=== PATIENT | female | born 1975 | race Two or more races ===

== ENCOUNTER 2024-10-31 23:06 | Inpatient (IN) | payer MEDICAID, SELFPAY ==
[2024-10-31 23:57] VITALS: BP 128/81; PULSE 100; RESP 18; TEMP 38.2; O2SAT 96; BMI 30.2
[2024-11-01] VITALS (7 sets, daily range): BP systolic 116–151; BP diastolic 75–86; PULSE 79–100; RESP 16–20; TEMP 36.2–37.3; O2SAT 96–100
--- NOTE | 2024-11-01 00:05 | EKG_ITS ---
[facility] Test Date: 2024-11-01 Pat Name: JIMMIE HOGAN Department: Room: - Gender: Female Rug [employer]her: : 1975 Requested By: Urban Barragan Order Number: [id number] Reading MD: Urban Barragan Measurements Intervals Keyes Rate: 99 P: 43 KS: 154 QRS: 35 QRSD: 74 T: 16 QT: 317 QTc: 408 Interpretive Statements SINUS RHYTHM LOW QRS VOLTAGE IN PRECORDIAL LEADS [QRS DEFLECTION < 1.0 mV IN CHEST LEADS] NONSPECIFIC T-WAVE ABNORMALITY Compared to ECG 10/29/2019 22:25:37 Low QRS voltage now present T-wave abnormality now present /store/S0/[id number].pdf
--- NOTE | 2024-11-01 00:05 | XR_ITS ---
Examination: PA lateral chest 2 views Technique: Upright PA lateral chest 2 views Exam date and time: November 01, 2024 at 0026 hrs. Indication: Chest pain today. Findings: Normal heart size 34 mm area of consolidation versus mass in the right midlung No pulmonary edema Impression: 34 mm area of consolidation versus mass in the right midlung, recommend follow-up chest imaging
--- NOTE | 2024-11-01 00:06 | EDRME_ITS ---
Rapid Medical Screening Exam [facility] Arrival date/time: 10/31/24 23:06 49F with history of HTN presents to ED with 2 days of R flank/upper back pain and fevers/chills. Patient denies cough and obvious hematuria/dysuria. Chief Complaint: Back Pain/Injury Vital signs: Vital Signs Temperature 100.8 F H 10/31/24 23:57 Pulse Rate 100 10/31/24 23:57 Respiratory Rate 18 10/31/24 23:57 Blood Pressure 128/81 10/31/24 23:57 Pulse Oximetry (%) 96 10/31/24 23:57 Oxygen Delivery Method Room Air 10/31/24 23:57
[2024-11-01 01:00] LABS: Lactate (Lactic Acid) 0.9 mMol/L (0.4-2.0)
[2024-11-01 01:09] LABS: Collection Type, Urine Clean Catch; RBC,Urine 0 /hpf (0-3); Squamous Epithelial Cell,Urine 0 /hpf (0-5); WBC,Urine 0 /hpf (0-5)
[2024-11-01 01:11] LABS: Basophils % (Auto) 0 % (0-2.5); Eosinophils # (Auto) 0.2 Thou/mm3 (0.0-0.5); Eosinophils % (Auto) 3 % (0-10); Hematocrit 38.6 % (36.0-46.0); Immature Granulocytes % (Auto) 0 % (0-0); Immature Granulocytes Auto 0.03 Thou/mm3 (0.00-0.00); Lymphocytes # (Auto) 2.3 Thou/mm3 (1.0-4.8); Lymphocytes % (Auto) 24 % (10-50); Mean Corpuscular HGB Conc 33.7 g/dl (31.0-37.0); Mean Corpuscular Volume 89 fL (80-100); Monocytes # (Auto) 0.9 Thou/mm3 (0.0-0.8); Monocytes % (Auto) 9 % (0-12); Neutrophils # (Auto) 6.1 Thou/mm3 (1.8-7.7); Neutrophils % (Auto) 64 % (37-80); Nucleated Red Blood Cell % 0 /100 WBC (0); Platelet Count 352 Thou/mm3 (140-440); RDW Standard Deviation 44.2 fL (36.4-46.3); Red Blood Count 4.33 Miln/mm3 (4.00-5.20); White Blood Count 9.6 Thou/mm3 (3.6-11.0)
[2024-11-01 01:12] LABS: Bilirubin,Urine Negative (Negative); Blood,Urine 3+ (Negative); Clarity,Urine Clear (Clear/Hazy); Color,Urine Lt Yellow (Lt Yel-Yel); Glucose, Urine Negative (Negative); Ketones,Urine Negative (Negative); Leukocyte Esterase,Urine 2+ (Negative); Nitrite,Urine Negative (Negative); PH,Urine 5.5 (5.0-7.0); Protein,Urine Negative (Neg - Trace); Specific Gravity,Urine 1.015 (1.001-1.035); Urobilinogen,Urine 0.2 mg/dL (0.0-1.0)
[2024-11-01 01:16] LABS: HCG Qualitative,Urine Negative
[2024-11-01 01:17] LABS: Culture Indicated,Urine Yes
[2024-11-01 01:22] LABS: Amphetamine/Methamp Scrn,U Negative (Negative); Barbiturate Screen,Urine Negative (Negative); Benzodiazepines Screen,Urine Negative (Negative); Benzoylecgonine Screen, Ur Negative (Negative); Fentanyl Screen,Urine Negative (Negative); Opiate Screen,Urine Negative (Negative); THC Screen,Urine Negative (Negative)
[2024-11-01 01:29] LABS: Alanine Aminotransferase 19 U/L (10-49); Albumin, Serum 4.7 gm/dL (3.5-5.0); Albumin/Globulin Ratio 1.3 (1.2-2.2); Alkaline Phosphatase 110 U/L (46-116); Anion Gap 7 (7-16); Aspartate Amino Transferase 21 U/L (0-34); BUN/Creatinine Ratio 14 Ratio (12-20); Bilirubin,Total 0.6 mg/dL (0.3-1.2); Blood Urea Nitrogen 13 mg/dL (9-23); Calcium 9.8 mg/dL (8.3-10.6); Calcium (Corrected) 9.8 mg/dL (8.5-10.1); Carbon Dioxide 26.2 mMol/L (20.0-31.0); Chloride 104 mMol/L (98-107); Creatinine (Component) 0.9 mg/dL (0.6-1.3); Estimated Creatinine Clearance 75.7 mL/min (>60); Globulin 3.5 gm/dL (2.3-3.5); Glucose 104 mg/dL (74-106); Osmolality,Calculated 273 (275-295); Potassium 3.3 mMol/L (3.4-5.1); Procalcitonin 0.07 ng/ml (0.0-0.49); Sodium 137 mMol/L (136-145); Total Protein 8.2 gm/dL (5.7-8.2); Troponin I < 0.002 ng/mL (0.0-0.045); eGFR > 60 See Note
--- NOTE | 2024-11-01 04:12 | EDNOTE_ITS ---
ED Back Injury Pain RME/HPI General Chief Complaint: Back Pain/Injury Stated Complaint: Right Flank Pain Time Seen by Provider: 11/01/24 04:11 Arrival date/time: 10/31/24 23:06 Limitations: no limitations RME / HPI RME / HPI Narrative: 10/31/24 23:06 49F with history of HTN presents to ED with 2 days of R flank/upper back pain and fevers/chills. Patient denies cough and obvious hematuria/dysuria. ---- Dr. Marks's Main ED Evaluation: 49yo female with a history of HTN presents to the ED for a chief complaint of left mid back pain x 1 day. Patient states the pain woke her up when she was sleeping. She states she feels like something's wrong with my lung . Sbe denies any chest pain, cough, fever, chills, BLE swelling or any other associated symptoms. No known allergies. Related Data Allergies Allergy/AdvReac Type Severity Reaction Status Date / Time No Known Allergies Allergy Verified 10/29/19 21:48 Review of Systems Review of Systems Systems Reviewed: All systems reviewed, normal except as documented Past Medical History Social History SMOKING STATUS: Never smoker ED Exam General Limitations: Present no limitations General appearance: Present alert and in no apparent distress Head Head exam: Present atraumatic Eye Eye exam: Present normal appearance, PERRL and EOMI ENT ENT exam: Present normal exam, normal oropharynx and mucous membranes moist Neck Neck exam: Present normal inspection, full ROM and trachea midline Chest Chest inspection: Present normal inspection and symmetric chest wall rise Respiratory Respiratory exam: Present normal lung sounds bilaterally Cardiovascular Cardiovascular exam: Present normal rhythm, tachycardia and normal heart sounds Abdominal Exam Abdominal exam: Present soft and normal bowel sounds Extremities Exam Extremities exam: Present normal inspection and full ROM Back Exam Back exam: Present full ROM and paraspinal tenderness (left) Neurological Exam Neurological exam: Present alert, oriented X3 and CN II-XII intact Psychiatric Psychiatric exam: Present normal affect and normal mood Skin Skin exam: Present warm, dry, intact and normal color Course Course Course Narrative: CXR is ordered for determining the etiology of fever. Quality Measures none Orders Category Date Time Status Bedside COVID-19 Antigen Test NOW Care 11/01/24 00:05 Completed Bedside Influenza A&B Antigen Test NOW Care 11/01/24 00:[address] Screening NOW Care 11/01/24 05:03 Active EKG (ED ONLY) *Do not use* NOW Care 11/01/24 00:[address] angio chest Stat Exams 11/01/24 05:03 Taken EKG (ED Only) Stat Exams 11/01/24 00:05 Draft XR chest 2V Stat Exams 11/01/24 00:05 Taken CBC Stat Lab 11/01/24 00:46 Completed Comprehensive Metabolic Panel Stat Lab 11/01/24 00:46 Completed Drug Screen,Urine Stat Lab 11/01/24 00:32 Completed HCG Qualitative,Urine Stat Lab 11/01/24 00:32 Completed Lactate (Lactic Acid) Stat Lab 11/01/24 00:46 Completed Procalcitonin Stat Lab 11/01/24 00:46 Completed Troponin I Stat Lab 11/01/24 00:46 Completed Urinalysis, C/S if Indicated Stat Lab 11/01/24 00:32 Completed Urine Culture Stat Lab 11/01/24 00:32 Received Ketorolac Inj [Toradol Inj] Med 11/01/24 05:38 Discontinued 15 mg IVP X1 ONE Potassium Chloride [K-Dur] Med 11/01/24 05:38 Discontinued 20 meq PO X1 ONE Vital Signs Vital signs: Vital Signs Temperature 100.8 F H 10/31/24 23:57 Pulse Rate 100 10/31/24 23:57 Respiratory Rate 18 10/31/24 23:57 Blood Pressure 128/81 10/31/24 23:57 Pulse Oximetry (%) 96 10/31/24 23:57 Oxygen Delivery Method Room Air 10/31/24 23:57 Pulse ox is 96% on room air, which is normal according to my interpretation. Back Pain / Injury MDM Narrative MDM Narrative:: Differential diagnosis includes pulmonary embolism, pneumonia, pleural effusion, musculoskeletal. Patient data External records reviewed:: [facility] previous records (Per chart review, patient has no relevant previous ED visits or admissions to this facility.) Clinical information provided by:: patient Social determinants that could affect healthcare access:: none Patient has the following chronic illnesses:: none How is presenting disease/condition affected by chronic disease/condition?: no chronic disease Evaluation data The following diagnostics were reviewed and interpreted by me:: lab results, radiology exam(s) and EKG tracing(s) Lab and/or radiology exams considered but not ordered:: none Interpretation Summary: CBC is normal, Potassium is slightly low at 3.3, Procalcitonin is normal, Lactic Acid is normal, troponin is normal, HCG is negative, UA shows 3+ blood and 2+ leukocyte esterase, UDS is negative, according to my interpretation. CXR is negative for CHF, cardiomegaly, infiltrates or pleural effusions, according to my interpretation. EKG done at 0011, NSR, rate of 99, poor R wave progression, nonspecific ST-T wave changes in lead III, no ST elevations or depressions, similar to previous EKG done in 2019, according to my interpretation. Medications / Prescriptions Medications or Prescriptions considered but not ordered:: none Medication administrations:: Medication Administration History Discontinued Medications Ketorolac Tromethamine (Ketorolac Inj 30 Mg/Ml Vial) 15 mg IVP X1 ONE Stop: 11/01/24 05:39 Last Admin: 11/01/24 05:45 Dose: 15 mg Documented By: EE Potassium Chloride (Potassium Chloride 20 Meq Tabcr) 20 meq PO X1 ONE Stop: 11/01/24 05:39 Last Admin: 11/01/24 05:45 Dose: 20 meq Documented By: EE see above, if any Consultations Consultation(s) initiated? (list below): No Diagnosis Differential diagnosis back pain/injury: other (PE, pneumonia, pleural effusion, atypical pneumonia, musculoskeletal pain) Most likely diagnosis given after review of the tests above:: see below Admission Indicated Admission indicated?: not indicated Admission Request Was there a request for admission?: No Disposition Plan Disposition Plan: other (specify) (Signed out to the next oncoming provider at 0600 pending CTA of the chest.) Discharge Plan Plan Patient condition on transfer: Stable Problem List Clinical Impression: Thoracic back pain Patient/Caregiver Discharge Instructions Print Language: Indonesian
--- NOTE | 2024-11-01 05:03 | XR_ITS ---
Examination: CTA chest with intravenous contrast 2-D reconstructions 3-D reconstructions, vascular Date and time of exam: November 01, 2024 0629 hrs. Indications: Onset chest pain shortness of breath hypoxia difficulty breathing today, acute onset left back pain today CTDI: vol (mGy) 16.65 DLP: (mGycm) 425 Technique: Multiple axial sections of the thorax have been obtained. 3 mm slice thickness, from below the hemidiaphragms to above the apices of the lungs. Mediastinal and lung density settings have been obtained. 2-D sagittal and coronal reconstructions. 3-D angiographic renderings, 3-D volume renderings, 3D post processing, vascular maximum intensity projections obtained. Contrast administered is 100 cc Isovue-370 intravenous. Low dose protocols were performed. One or more of the following dose reduction techniques were used; automated exposure control, adjustment of the mA and/or KV according to patient size, use of iterative reconstruction technique. Findings: AP dimension ascending thoracic aorta 35 mm Pulmonary artery segments are not enlarged No pulmonary artery emboli Right hilar mild lymphadenopathy Prominent pneumonia right base Mild thoracic spondylosis 18 mm liver cyst No gallstones Spleen is not enlarged No pancreatic mass No hydronephrosis Abdominal aorta normal size Impression: Dense consolidation which may be cavitary in the right lower lobe with right hilar lymphadenopathy, follow-up chest imaging strongly recommended Negative for pulmonary artery emboli
[2024-11-01] MEDS: POTASSIUM CHLORIDE 20 mEq TABCR PO (05:45)
[2024-11-01] MEDS: KETOROLAC INJ 30 MG/ML VIAL 15 MG IVP (05:45)
--- NOTE | 2024-11-01 07:30 | PD.EDADDENDU ---
Emergency Room Addendum Addendum Narrative: 0600: Care assumed from Dr. Limon, the previous shift emergency physician. Past medical, surgical, social and family history reviewed. Vitals and home medications reviewed. I will assume the care of the patient at this time, pending CT angio chest report. Please refer to the emergency department record for history and examination from initial visit.? Nursing notes reviewed by me. Vital signs reviewed by me. [facility] medical records reviewed by me. 1110: At this time reports pain mostly to the right mid-upper back. We reviewed all the results, analysis, and treatment plans. Patient reports in the last 6 months she has had on/off night sweats which she attributed to menopause . Yesterday states she had chills. Denies fevers, cough, chest pain, shortness of breath, abdominal pain, n/v, change in appetite, or weight loss. Denies recent travel or known exposure to TB. 1120: I spoke with resident Dr. Canseco working with Dr. Coon. Discussed patients PMHx, HPI, ED course, exam findings, labs, and radiology results. Will come evaluate the patient in the ED. RADIOLOGY Ordering Physician: Marquita Limon MD Date of Service: 11/01/24 Procedure(s): CT angio chest Accession Number(s): [id number] cc: Femi Nichols MD; Marquita Limon MD~ Examination: CTA chest with intravenous contrast 2-D reconstructions 3-D reconstructions, vascular Date and time of exam: November 01, 2024 0629 hrs. Indications: Onset chest pain shortness of breath hypoxia difficulty breathing today, acute onset left back pain today CTDI: vol (mGy) 16.65 DLP: (mGycm) 425 Technique: Multiple axial sections of the thorax have been obtained. 3 mm slice thickness, from below the hemidiaphragms to above the apices of the lungs. Mediastinal and lung density settings have been obtained. 2-D sagittal and coronal reconstructions. 3-D angiographic renderings, 3-D volume renderings, 3D post processing, vascular maximum intensity projections obtained. Contrast administered is 100 cc Isovue-370 intravenous. Low dose protocols were performed. One or more of the following dose reduction techniques were used; automated exposure control, adjustment of the mA and/or KV according to patient size, use of iterative reconstruction technique. Findings: AP dimension ascending thoracic aorta 35 mm Pulmonary artery segments are not enlarged No pulmonary artery emboli Right hilar mild lymphadenopathy Prominent pneumonia right base Mild thoracic spondylosis 18 mm liver cyst No gallstones Spleen is not enlarged No pancreatic mass No hydronephrosis Abdominal aorta normal size Impression: Dense consolidation which may be cavitary in the right lower lobe with right hilar lymphadenopathy, follow-up chest imaging strongly recommended Negative for pulmonary artery emboli Dictated By:Femi Nichols MD Signed By:<Electronically signed by Femi Nichols MD in OV>11/01/24 0722
--- NOTE | 2024-11-01 11:09 | PD.EDRME ---
Rapid Medical Screening Exam [facility] Arrival date/time: 10/31/24 23:06 10/31/24 23:06 49F with history of HTN presents to ED with 2 days of R flank/upper back pain and fevers/chills. Patient denies cough and obvious hematuria/dysuria. ---- Dr. Marks'fiona Main ED Evaluation: 49yo female with a history of HTN presents to the ED for a chief complaint of left mid back pain x 1 day. Patient states the pain woke her up when she was sleeping. She states she feels like something's wrong with my lung . Sbe denies any chest pain, cough, fever, chills, BLE swelling or any other associated symptoms. No known allergies. Chief Complaint: Back Pain/Injury Time Seen by Provider: 11/01/24 04:11 Vital signs: Vital Signs Temperature 100.8 F H 10/31/24 23:57 Pulse Rate 100 10/31/24 23:57 Respiratory Rate 18 10/31/24 23:57 Blood Pressure 128/81 10/31/24 23:57 Pulse Oximetry (%) 96 10/31/24 23:57 Oxygen Delivery Method Room Air 10/31/24 23:57 RME Narrative: 10/31/24 23:06 49F with history of HTN presents to ED with 2 days of R flank/upper back pain and fevers/chills. Patient denies cough and obvious hematuria/dysuria. ---- Dr. Villalta Main ED Evaluation: 49yo female with a history of HTN presents to the ED for a chief complaint of left mid back pain x 1 day. Patient states the pain woke her up when she was sleeping. She states she feels like something's wrong with my lung . Sbe denies any chest pain, cough, fever, chills, BLE swelling or any other associated symptoms. No known allergies.
--- NOTE | 2024-11-01 13:43 | PD.RESHP ---
Documentation for date of: 11/01/24 [facility] History of Present Illness Chief complaint: Pain on the back of right chest History of present illness: A 49-year-old female with past medical history of hypertension on lisinopril presented to the hospital with chief complaints of pain on the back of right side of chest since 1 day. Patient was apparently normal 1 day ago, developed sudden onset of pain in the right back. Pain is continuous without any aggravating or relieving factors. Denies fever, shortness of breath, cough, trauma, night sweats, weight loss, abdominal pain. Denies similar complaints in the past. Denied recent travel. ED Course: -Initial vitals were blood pressure 128/81 mmHg, pulse rate 100/min, respiratory rate 18/min, temperature 100.8 ?F -Labs significant for WBC 9.6, Hb 13, platelets 352, sodium 137, potassium 3.3, BUN 13, creatinine 0.9, lactate 0.9, negative Pro-Joon and liver function test is within normal limits. Urine analysis showed 3+ blood without any WBC. Tested negative for urine toxicology -CTA chest showed dense consolidation in the right lower lobe with suspected cavitated lesion with hilar lymphadenopathy. -In the ED, patient was given potassium supplementation and a dose of ketorolac -Patient was admitted for pneumonia Past medical history: Hypertension on lisinopril Past surgical history: History of lump in the breast almost 30 years ago s/p biopsy, no malignancy noted on the biopsy per patient Social history: Denies smoking, alcohol or other illicit drug abuse. Allergies: NKA Review of Systems Review of Systems Narrative Review of Systems: Constitutional: No Weight Change, No Fever, No Chills, No Night Sweats, No Fatigue, No Malaise ENT/Mouth: No Hearing Changes, No Ear Pain, No Nasal Congestion, No Sinus Pain, No Hoarseness, No sore throat, No Rhinorrhea, No Swallowing Difficulty Eyes: No Eye Pain, No Swelling, No Redness, No Foreign Body, No Discharge, No Vision Changes Cardiovascular: No Chest Pain, No SOB, No PND, No Dyspnea on Exertion, No Orthopnea, No Edema, No Palpitations Respiratory: No Cough, No Sputum, No Wheezing, No Dyspnea Gastrointestinal: No Nausea, No Vomiting, No Diarrhea, No Constipation, No Pain, No Heartburn, No Anorexia, No Dysphagia, No Hematochezia, No Melena, No Flatulence, No Jaundice Genitourinary: No Dysuria, No Urinary Frequency, No Hematuria, No Urinary Incontinence, No Urgency, No Flank Pain, No Urinary Flow Changes, No Hesitancy Musculoskeletal: No Arthralgias, No Myalgias, No Joint Swelling, No Joint Stiffness, No Back Pain, No Neck Pain, No Injury History Skin: No Skin Lesions, No Pruritis Neuro: No Weakness, No Numbness, No Paresthesias, No Loss of Consciousness, No Syncope, No Dizziness, No Headache, No Coordination Changes, No Recent Falls Exam Vital Signs Temp Pulse Resp BP Pulse Ox O2 Del Method 98.5 F 79 16 131/80 H 97 Room Air 11/01/24 11:40 11/01/24 11:40 11/01/24 11:40 11/01/24 11:40 11/01/24 11:40 11/01/24 11:40 Narrative Exam General: Awake and in no acute distress. HEENT: Normocephalic, atraumatic, mucous membranes moist. Heart: Regular rate and rhythm, no murmurs. Lungs: Right posterior basal crepitations are heard. Rest of the examination is unremarkable Abdomen: Soft, nondistended, nontender, positive bowel sounds. ?No guarding or rebound tenderness. Neurologic: Alert and oriented x3, no gross neurological deficit, and patient able to move all 4 extremities. Extremities: No edema. Skin: No rash or ecchymoses. Results: Labs 11/03/24 05:30 11/03/24 05:30 Labs: Short CBC 11/01/24 Range/Units 00:46 WBC 9.6 (3.6-11.0) Thou/mm3 Hgb 13.0 (12.0-16.0) g/dL Hct 38.6 (36.0-46.0) % Plt Count 352 (140-440) Thou/mm3 BMP 11/01/24 00:46 Sodium 137 Potassium 3.3 L Chloride 104 Carbon Dioxide 26.2 BUN 13 Creatinine 0.9 Glucose 104 Calcium 9.8 Cardiac Enzymes 11/01/24 Range/Units 00:46 Troponin I < 0.002 (0.0-0.045) ng/mL Liver Function 11/01/24 Range/Units 00:46 Total Bilirubin 0.6 (0.3-1.2) mg/dL AST 21 (0-34) U/L ALT 19 (10-49) U/L Alkaline Phosphatase 110 (46-116) U/L Albumin 4.7 (3.5-5.0) gm/dL Urine 11/01/24 Range/Units 00:32 Urine Color Lt Yellow (Lt Yel-Yel) Urine Clarity Clear (Clear/Hazy) Urine pH 5.5 (5.0-7.0) Ur Specific [place] 1.015 (1.001-1.035) Urine Protein Negative (Neg - Trace) Urine Glucose (UA) Negative (Negative) Quality Measures Quality Measures none Medications Home Medications and Allergies Home Medications ?Medication ?Instructions ?Recorded ?Confirmed ?Type lisinopril 10 1 tab PO QDAY 11/01/24 11/01/24 History mg-hydrochlorothiazide 12.5 mg tablet Allergies Allergy/AdvReac Type Severity Reaction Status Date / Time No Known Allergies Allergy Verified 10/29/19 21:48 Visit Medications Acetaminophen (Acetaminophen 325 Mg Tablet) 650 mg PO Q6H PRN PRN Reason: Fever >101.5 Stop: 12/01/24 13:28 Ceftriaxone Sodium/Dextrose (Rocephin/D5w 1gm Iv Premix) 50 mls @ 100 mls/hr IV Q12HR GUILLE Stop: 11/08/24 13:32 Magnesium Hydroxide (Milk Of Magnesia Susp 30 Ml Udc) 30 ml PO QDAY PRN; Protocol PRN Reason: CONSTIPATION Stop: 12/01/24 13:28 Ondansetron HCl (Ondansetron Inj 2 Mg/Ml Inj 2 Ml) 4 mg IV Q6H PRN; Protocol PRN Reason: NAUSEA OR VOMITING Stop: 12/01/24 13:28 Discontinued Medications Ketorolac Tromethamine (Ketorolac Inj 30 Mg/Ml Vial) 15 mg IVP X1 ONE Stop: 11/01/24 05:39 Last Admin: 11/01/24 05:45 Dose: 15 mg Potassium Chloride (Potassium Chloride 20 Meq Tabcr) 20 meq PO X1 ONE Stop: 11/01/24 05:39 Last Admin: 11/01/24 05:45 Dose: 20 meq Sodium Chloride (Sodium Chloride Rt 10% 15 Ml Nebu) 5 ml INH X1 ONE Stop: 11/01/24 13:30 Assessment & Plan Plan A 49-year-old female with past medical history of hypertension on lisinopril presented to the hospital with chief complaints of pain on the back of right side of chest since 1 day and diagnosed to have pneumonia # Pneumonia # Cavitary lesion in the right lung Ddx : TB versus cocci versus sarcoidosis versus malignancy -Patient came to the hospital with the complaints of pain on the back of the right chest -Denies fever, shortness of breath, cough, weight loss, night sweats -Denies any travel history. 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 -In the ED noted to have a temperature of 100.8 ?F -CBC and CMP is within normal limits. -CTA showed right lower lobe consolidation with cavitary lesion. Plan -Cocci IgM and IgG is ordered -Sputum for AFB, QuantiFERON, tuberculin test is ordered. -Sputum for culture and Gram stain is ordered -Started on ceftriaxone and doxycycline [11/01- -ordered Mucinex inhalation and chest physiotherapy # History of hypertension -Blood pressure at the time of admission is 138/81 mmHg -Patient stated that she is using lisinopril 20 Mg at home Plan -Will resume the medications based on her blood pressures Hospital Maintenance: Dispo: MedSurg DVT ppx: SCD GI ppx: Not required Diet: Low-sodium IV lines: Peripheral Code status: Full code Patient plan of care was discussed with the attending physician, Dr. Coon and senior resident Dr. Ajith Hall, PGY1 Attending Provider Attestation/Addendum I reviewed labs, imaging, EKG, home medications and prior available records. Face to face evaluation was performed by me. I have personally examined the patient and discussed assessment and plan with the IM team. I reviewed the resident note and agree with the plan with exceptions as below. 49-year-old female with history of hypertension who presented with a chief complaint of subjective fevers, sweating, and cough. She was found to have possible right lower lobe pneumonia and cavitary lesion of lung. Right lower lobe pneumonia: Started the patient on ceftriaxone/cali doxycycline. Cavitary lesion of lung: Sent TB workup and cocci IgM. Consulted ID to determine whether we need to do AFB x 3. Ordered QuantiFERON.
--- NOTE | 2024-11-01 14:06 | PC.CC ---
Patient is a 49 year-old female who presents to the hospital for Pneumonia. Rayne WINCHESTER made [id number] contact with patient. ASW introduced self, role, and reason for visit. Patient appeared alert and oriented to self, location, and situation. Patient was pleasant and engaged in initial assessment. Patient confirmed information on the demographics and reports she lives at home with her , Isac Souza . Prior to being admitted to the hospital the patient was able to ambulate independently and complete own ADLs. Patient does not use any DME or Oxygen. [facility]. Patient uses [facility] in [place] for prescription medications. Patient reports he next of kin is her , Isac Souza. Upon discharge patient plans to return back home. director emergency services to remain available for any discharge needs.
[2024-11-01 14:32] LABS: Cocci Serology, IgM Negative (Negative)
[2024-11-01] MEDS: cefTRIAXone/D5w 1gm IV premix 50 ML IV ×2 (16:06→20:28)
[2024-11-01] MEDS: DOXYCYCLINE 100 MG TABLET PO (20:28)
[2024-11-01] MEDS: TUBERCULIN PPD INJ 5 UNIT/0.1 ML DOSE ID (20:28)
[2024-11-02] VITALS: BP 135/78; PULSE 80; RESP 17; TEMP 36.2; O2SAT 98
[2024-11-02 04:00] VITALS: BP 132/78; PULSE 84; RESP 17; TEMP 36; O2SAT 96
--- NOTE | 2024-11-02 04:58 | PC.RT ---
PT unable to produce sputum with induction, MD Holland ok to put AFb on hold. states he will discuss with dayteam plan of care.
[2024-11-02 06:02] LABS: Quantiferon-TB* See Sep Rpt
[2024-11-02 06:11] LABS: Basophils % (Auto) 0 % (0-2.5); Eosinophils # (Auto) 0.3 Thou/mm3 (0.0-0.5); Eosinophils % (Auto) 4 % (0-10); Hematocrit 36.7 % (36.0-46.0); Hemoglobin 12.5 g/dL (12.0-16.0); Immature Granulocytes % (Auto) 0 % (0-0); Immature Granulocytes Auto 0.02 Thou/mm3 (0.00-0.00); Lymphocytes # (Auto) 1.8 Thou/mm3 (1.0-4.8); Lymphocytes % (Auto) 23 % (10-50); Mean Corpuscular HGB Conc 34.1 g/dl (31.0-37.0); Mean Corpuscular Hemoglobin 29.8 pg (25.0-35.0); Mean Corpuscular Volume 87 fL (80-100); Monocytes # (Auto) 0.7 Thou/mm3 (0.0-0.8); Monocytes % (Auto) 9 % (0-12); Neutrophils # (Auto) 5.2 Thou/mm3 (1.8-7.7); Neutrophils % (Auto) 64 % (37-80); Nucleated Red Blood Cell % 0 /100 WBC (0); Platelet Count 275 Thou/mm3 (140-440); RDW Standard Deviation 42.5 fL (36.4-46.3)
[2024-11-02 06:43] LABS: Anion Gap 7 (7-16); BUN/Creatinine Ratio 13 Ratio (12-20); Blood Urea Nitrogen 12 mg/dL (9-23); Calcium 9.4 mg/dL (8.3-10.6); Carbon Dioxide 27.7 mMol/L (20.0-31.0); Chloride 103 mMol/L (98-107); Creatinine (Component) 0.9 mg/dL (0.6-1.3); Glucose 97 mg/dL (74-106); Osmolality,Calculated 275 (275-295); Potassium 3.7 mMol/L (3.4-5.1); Sodium 138 mMol/L (136-145); eGFR > 60 See Note
[2024-11-02 08:00] VITALS: BP 138/70; PULSE 82; RESP 18; TEMP 36.9; O2SAT 97
[2024-11-02] MEDS: DOXYCYCLINE 100 MG TABLET PO ×2 (08:42→20:56)
[2024-11-02] MEDS: cefTRIAXone/D5w 1gm IV premix 50 ML IV ×2 (08:42→20:56)
[2024-11-02 12:00] VITALS: BP 127/82; PULSE 85; RESP 17; TEMP 36.8; O2SAT 97
[2024-11-02 13:47] LABS: Cocci Serology, IgG Negative (Negative)
[2024-11-02 16:00] VITALS: BP 126/79; PULSE 80; RESP 18; TEMP 36.7; O2SAT 97
--- NOTE | 2024-11-02 16:13 | ESPR_ITS ---
<Statement entered by Haritha Canseco MD - 11/03/24 07:46> Patient was seen and examined by me personally. I agree with most of the assessment and plan as discussed with the graphics intern physician, and my attending, Dr. Coon. Unable to induce sputum for AFB. PPD and Quantiferon pending. Cocci IgM negative, however may need to repeat. Will consult ID for further recs. Continue Abx for now. Haritha Canseco MD, PGY-3 Documentation for date of: 11/02/24 Subjective Subjective Interval history: Patient was seen and examined bedside. No acute overnight events. Stated that she does not have any complaints. Labs are unremarkable. Physical examination remains unchanged. As patient is not having sputum despite induction, sputum AFB is still pending. Patient is still in isolation. ID consult was done Exam Vital Signs Temp Pulse Resp BP Pulse Ox O2 Del Method 98.3 F 85 17 127/82 97 Room Air 11/02/24 12:00 11/02/24 12:00 11/02/24 12:00 11/02/24 12:00 11/02/24 12:00 11/02/24 12:00 Narrative Exam General: Awake and in no acute distress. HEENT: Normocephalic, atraumatic, mucous membranes moist. Heart: Regular rate and rhythm, no murmurs. Lungs: Clear to auscultation with no wheezing. crackles heard at lung base Abdomen: Soft, nondistended, nontender, positive bowel sounds. ?No guarding or rebound tenderness. Neurologic: Alert and oriented x3, no gross neurological deficit, and patient able to move all 4 extremities. Extremities: No edema. Skin: No rash or ecchymoses. Objective Labs 11/03/24 05:30 11/03/24 05:30 Labs: Laboratory Results - last 24 hr 11/01/24 11/02/24 11:50 05:05 WBC 8.0 RBC 4.20 Hgb 12.5 Hct 36.7 MCV 87 MCH 29.8 MCHC 34.1 RDW Std Deviation 42.5 Plt Count 275 D Neut % (Auto) 64 Lymph % (Auto) 23 [place] % (Auto) 9 Eos % (Auto) 4 Baso % (Auto) 0 Neut # (Auto) 5.2 Lymph # (Auto) 1.8 [place] # (Auto) 0.7 Eos # (Auto) 0.3 Baso # (Auto) 0.0 Immature Gran # (Auto) 0.02 H Absolute Nucleated RBC 0.00 Immature Gran % 0 Nucleated RBC % 0 Sodium 138 Potassium 3.7 Chloride 103 Carbon Dioxide 27.7 Anion Gap 7 BUN 12 Creatinine 0.9 Estim Creat Clear Calc 75.0 eGFR > 60 BUN/Creatinine Ratio 13 Glucose 97 Calculated Osmolality 275 Calcium 9.4 Coccidioides IgG Ab Negative Quality Measures Quality Measures none Assessment & Plan Assessment Current Active Medications: Generic Name Dose Route Start Last Admin Trade Name Freq PRN Reason Stop Dose Admin Acetaminophen 650 mg 11/01/24 13:29 Acetaminophen 325 Mg Tablet PO 12/01/24 13:28 Q6H PRN Fever >101.5 Doxycycline Hyclate 100 mg 11/01/24 21:00 11/02/24 08:42 Doxycycline 100 Mg Tablet PO 11/08/24 20:59 100 mg BID GUILLE Administration Ceftriaxone Sodium/Dextrose 50 mls @ 100 mls/hr 11/01/24 13:33 11/02/24 08:42 Rocephin/D5w 1gm Iv Premix IV 11/08/24 13:32 100 mls/hr Q12HR GUILLE Administration Magnesium Hydroxide 30 ml 11/01/24 13:29 Milk Of Magnesia Susp 30 Ml Udc PO 12/01/24 13:28 QDAY PRN CONSTIPATION Protocol Ondansetron HCl 4 mg 11/01/24 13:29 Ondansetron Inj 2 Mg/Ml Inj 2 Ml IV 12/01/24 13:28 Q6H PRN NAUSEA OR VOMITING Protocol Sodium Chloride 5 ml 11/01/24 20:40 Sodium Chloride Rt 10% 15 Ml Nebu INH 12/01/24 22:59 Q8HRRT PRN SPUTUM INDUCTION Plan A 49-year-old female with past medical history of hypertension on lisinopril presented to the hospital with chief complaints of pain on the back of right side of chest since 1 day and diagnosed to have pneumonia # Pneumonia # Cavitary lesion in the right lung Ddx : TB versus cocci versus sarcoidosis versus malignancy -Patient came to the hospital with the complaints of pain on the back of the right chest -Denies fever, shortness of breath, cough, weight loss, night sweats -Denies any travel history. 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 -In the ED noted to have a temperature of 100.8 ?F -CBC and CMP is within normal limits. -CTA showed right lower lobe consolidation with cavitary lesion. Plan -Cocci IgM and IgG is ordered - came back negative -Sputum for AFB, QuantiFERON, tuberculin test is ordered - sputum for AFB is still pending as patient is not able to produce despite induction. -Sputum for culture and Gram stain is ordered -Started on ceftriaxone and doxycycline [11/01- # History of hypertension -Blood pressure at the time of admission is 138/81 mmHg -Patient stated that she is using lisinopril 20 Mg at home Plan -Will resume the medications based on her blood pressures #H/O lump in the breast, benign 20 yrs ago, asymptomatic as of now Hospital Maintenance: Dispo: MedSurg DVT ppx: SCD GI ppx: Not required Diet: Low-sodium IV lines: Peripheral Code status: Full code Patient plan of care was discussed with the attending physician, Dr. Coon and senior resident Dr. Ajith Hall, PGY1 Attending Provider Attestation/Addendum I reviewed labs, imaging, EKG, home medications and prior available records. Face to face evaluation was performed by me. I have personally examined the patient and discussed assessment and plan with the IM team. I reviewed the resident note and agree with the plan with exceptions as below. 49-year-old female with history of hypertension who presented with a chief complaint of subjective fevers, sweating, and cough. She was found to have possible right lower lobe pneumonia and cavitary lesion of lung. Right lower lobe pneumonia: Started the patient on ceftriaxone/cali doxycycline. Cavitary lesion of lung: Sent TB workup and cocci IgM. Consulted ID to determine whether we need to do AFB x 3. Ordered QuantiFERON.
[2024-11-02 20:00] VITALS: BP 134/82; PULSE 81; RESP 17; TEMP 36.4; O2SAT 98
[2024-11-03] VITALS: BP 135/78; PULSE 86; RESP 16; TEMP 36.9; O2SAT 95
[2024-11-03 04:00] VITALS: BP 136/91; PULSE 76; RESP 15; TEMP 36.3; O2SAT 97
[2024-11-03 05:54] LABS: Basophils % (Auto) 0 % (0-2.5); Eosinophils # (Auto) 0.3 Thou/mm3 (0.0-0.5); Eosinophils % (Auto) 4 % (0-10); Hematocrit 33.8 % (36.0-46.0); Hemoglobin 11.4 g/dL (12.0-16.0); Immature Granulocytes % (Auto) 0 % (0-0); Immature Granulocytes Auto 0.02 Thou/mm3 (0.00-0.00); Lymphocytes # (Auto) 2.1 Thou/mm3 (1.0-4.8); Lymphocytes % (Auto) 29 % (10-50); Mean Corpuscular HGB Conc 33.7 g/dl (31.0-37.0); Mean Corpuscular Hemoglobin 29.8 pg (25.0-35.0); Mean Corpuscular Volume 88 fL (80-100); Monocytes # (Auto) 0.5 Thou/mm3 (0.0-0.8); Monocytes % (Auto) 7 % (0-12); Neutrophils # (Auto) 4.4 Thou/mm3 (1.8-7.7); Neutrophils % (Auto) 59 % (37-80); Nucleated Red Blood Cell % 0 /100 WBC (0); Platelet Count 263 Thou/mm3 (140-440); RDW Standard Deviation 42.3 fL (36.4-46.3); Red Blood Count 3.83 Miln/mm3 (4.00-5.20); White Blood Count 7.3 Thou/mm3 (3.6-11.0)
[2024-11-03 06:30] LABS: Anion Gap 8 (7-16); BUN/Creatinine Ratio 15 Ratio (12-20); Blood Urea Nitrogen 12 mg/dL (9-23); Calcium 8.9 mg/dL (8.3-10.6); Carbon Dioxide 25.3 mMol/L (20.0-31.0); Chloride 105 mMol/L (98-107); Creatinine (Component) 0.8 mg/dL (0.6-1.3); Estimated Creatinine Clearance 84.3 mL/min (>60); Glucose 98 mg/dL (74-106); Osmolality,Calculated 275 (275-295); Potassium 3.8 mMol/L (3.4-5.1); Sodium 138 mMol/L (136-145); eGFR > 60 See Note
[2024-11-03 07:45] VITALS: BP 128/79; PULSE 70; RESP 18; TEMP 36.4; O2SAT 94
[2024-11-03] MEDS: cefTRIAXone/D5w 1gm IV premix 50 ML IV ×2 (10:10→20:47)
[2024-11-03] MEDS: DOXYCYCLINE 100 MG TABLET PO ×2 (10:10→20:48)
--- NOTE | 2024-11-03 11:25 | ESPR_ITS ---
Documentation for date of: 11/03/24 Subjective Subjective Interval history: Patient was seen and examined bedside. Denies any other complaints. Physical examination remains unchanged. Labs were unremarkable. Still pending QuantiFERON and sputum AFB. Consulted Dr Hussein and will appreciate his ruminations. Exam Vital Signs Temp Pulse Resp BP Pulse Ox O2 Del Method 97.5 F 70 18 128/79 94 L Room Air 11/03/24 07:45 11/03/24 07:45 11/03/24 07:45 11/03/24 07:45 11/03/24 07:45 11/03/24 07:45 Narrative Exam General: Awake and in no acute distress. HEENT: Normocephalic, atraumatic, mucous membranes moist. Heart: Regular rate and rhythm, no murmurs. Lungs: Clear to auscultation with no wheezing. Crackles heard at the base of right lung. Abdomen: Soft, nondistended, nontender, positive bowel sounds. ?No guarding or rebound tenderness. Neurologic: Alert and oriented x3, no gross neurological deficit, and patient able to move all 4 extremities. Extremities: No edema. Skin: No rash or ecchymoses. Objective Labs 11/04/24 04:15 11/04/24 04:15 Labs: Laboratory Results - last 24 hr 11/01/24 11/03/24 11:50 05:30 WBC 7.3 RBC 3.83 L Hgb 11.4 L Hct 33.8 L MCV 88 MCH 29.8 MCHC 33.7 RDW Std Deviation 42.3 Plt Count 263 Neut % (Auto) 59 Lymph % (Auto) 29 [place] % (Auto) 7 Eos % (Auto) 4 Baso % (Auto) 0 Neut # (Auto) 4.4 Lymph # (Auto) 2.1 [place] # (Auto) 0.5 Eos # (Auto) 0.3 Baso # (Auto) 0.0 Immature Gran # (Auto) 0.02 H Absolute Nucleated RBC 0.00 Immature Gran % 0 Nucleated RBC % 0 Sodium 138 Potassium 3.8 Chloride 105 Carbon Dioxide 25.3 Anion Gap 8 BUN 12 Creatinine 0.8 Estim Creat Clear Calc 84.3 eGFR > 60 BUN/Creatinine Ratio 15 Glucose 98 Calculated Osmolality 275 Calcium 8.9 Coccidioides IgG Ab Negative Quality Measures Quality Measures none Assessment & Plan Assessment Current Active Medications: Generic Name Dose Route Start Last Admin Trade Name Stanleyq PRN Reason Stop Dose Admin Acetaminophen 650 mg 11/01/24 13:29 Acetaminophen 325 Mg Tablet PO 12/01/24 13:28 Q6H PRN Fever >101.5 Doxycycline Hyclate 100 mg 11/01/24 21:00 11/03/24 10:10 Doxycycline 100 Mg Tablet PO 11/08/24 20:59 100 mg BID GUILLE Administration Ceftriaxone Sodium/Dextrose 50 mls @ 100 mls/hr 11/01/24 13:33 11/03/24 10:10 Rocephin/D5w 1gm Iv Premix IV 11/08/24 13:32 100 mls/hr Q12HR GUILLE Administration Magnesium Hydroxide 30 ml 11/01/24 13:29 Milk Of Magnesia Susp 30 Ml Udc PO 12/01/24 13:28 QDAY PRN CONSTIPATION Protocol Ondansetron HCl 4 mg 11/01/24 13:29 Ondansetron Inj 2 Mg/Ml Inj 2 Ml IV 12/01/24 13:28 Q6H PRN NAUSEA OR VOMITING Protocol Sodium Chloride 5 ml 11/01/24 20:40 Sodium Chloride Rt 10% 15 Ml Nebu INH 12/01/24 22:59 Q8HRRT PRN SPUTUM INDUCTION Plan A 49-year-old female with past medical history of hypertension on lisinopril presented to the hospital with chief complaints of pain on the back of right side of chest since 1 day and diagnosed to have pneumonia # Pneumonia # Cavitary lesion in the right lung Ddx : cocci versus sarcoidosis versus malignancy versus low suspicion of TB -Patient came to the hospital with the complaints of pain on the back of the right chest -Denies fever, shortness of breath, cough, weight loss, night sweats -Denies any travel history. 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 -In the ED noted to have a temperature of 100.8 ?F -CBC and CMP is within normal limits. -CTA showed right lower lobe consolidation with cavitary lesion. Plan -Cocci IgM and IgG is ordered - came back negative -Sputum for AFB, QuantiFERON, tuberculin test is ordered - sputum for AFB is still pending as patient is not able to produce despite induction. -Sputum for culture and Gram stain is ordered -is still pending as patient is not able to produce despite induction. -Started on ceftriaxone and doxycycline [11/01- -Dr Hussein was consulted and will appreciate recommendations. # History of hypertension -Blood pressure at the time of admission is 138/81 mmHg -Patient stated that she is using lisinopril 20 Mg at home Plan -Will resume the medications based on her blood pressures #H/O lump in the breast, benign 20 yrs ago, asymptomatic as of now Hospital Maintenance: Dispo: MedSurg DVT ppx: SCD GI ppx: Not required Diet: Low-sodium IV lines: Peripheral Code status: Full code Patient plan of care was discussed with the attending physician, Dr. Coon and senior resident Dr. Ricki Hall, PGY1 L Ms. Trujillo is a pleasant Nepali-speaking 49-year-old female who was admitted for recurrent right chest wall pain. She was found to have a right lower lobe pneumonia, questionable for a cavitary lesion. Patient did endorse subjective fevers and cold sweats intermittently over the last few weeks. QuantiFERON and cocci workup ordered. Pending sample collection for AFB to rule out TB at this time. Infectious disease specialist Dr. Hussein is consulted for further recommendations. Patient examined and case discussed with the team including attending physician. Note reviewed, I agree with the care plan as documented. - Fausto Robison MD, PGY 2 Attending Provider Attestation/Addendum I reviewed labs, imaging, EKG, home medications and prior available records. Face to face evaluation was performed by me. I have personally examined the patient and discussed assessment and plan with the IM team. I reviewed the resident note and agree with the plan with exceptions as below. 49-year-old female with history of hypertension who presented with a chief complaint of subjective fevers, sweating, and cough. She was found to have possible right lower lobe pneumonia and cavitary lesion of lung. Right lower lobe pneumonia: Started the patient on ceftriaxone/ doxycycline. Cavitary lesion of lung: Sent TB workup and cocci IgM. Consulted ID to determine whether we need to do AFB x 3. Ordered QuantiFERON which is pending. Pending ID recommendations.
[2024-11-03 11:54] VITALS: BP 121/83; PULSE 75; RESP 18; TEMP 36.4; O2SAT 97
[2024-11-03 15:39] VITALS: BP 134/83; PULSE 81; RESP 18; TEMP 36.2; O2SAT 97
[2024-11-03 20:00] VITALS: BP 136/82; PULSE 79; RESP 17; TEMP 36.3; O2SAT 98
[2024-11-04] VITALS: BP 147/75; PULSE 74; RESP 17; TEMP 36.7; O2SAT 97
[2024-11-04 04:00] VITALS: BP 124/77; PULSE 74; RESP 17; TEMP 36.4; O2SAT 97
[2024-11-04 05:48] LABS: Basophils % (Auto) 1 % (0-2.5); Eosinophils # (Auto) 0.3 Thou/mm3 (0.0-0.5); Eosinophils % (Auto) 5 % (0-10); Hemoglobin 11.4 g/dL (12.0-16.0); Immature Granulocytes % (Auto) 0 % (0-0); Immature Granulocytes Auto 0.01 Thou/mm3 (0.00-0.00); Lymphocytes # (Auto) 2.4 Thou/mm3 (1.0-4.8); Lymphocytes % (Auto) 35 % (10-50); Mean Corpuscular HGB Conc 33.5 g/dl (31.0-37.0); Mean Corpuscular Hemoglobin 29.6 pg (25.0-35.0); Mean Corpuscular Volume 88 fL (80-100); Monocytes # (Auto) 0.4 Thou/mm3 (0.0-0.8); Monocytes % (Auto) 7 % (0-12); Neutrophils # (Auto) 3.5 Thou/mm3 (1.8-7.7); Neutrophils % (Auto) 53 % (37-80); Nucleated Red Blood Cell % 0 /100 WBC (0); Platelet Count 300 Thou/mm3 (140-440); RDW Standard Deviation 41.9 fL (36.4-46.3); Red Blood Count 3.85 Miln/mm3 (4.00-5.20); White Blood Count 6.7 Thou/mm3 (3.6-11.0)
[2024-11-04 06:24] LABS: Anion Gap 10 (7-16); BUN/Creatinine Ratio 16 Ratio (12-20); Blood Urea Nitrogen 11 mg/dL (9-23); Carbon Dioxide 25.2 mMol/L (20.0-31.0); Chloride 105 mMol/L (98-107); Creatinine (Component) 0.7 mg/dL (0.6-1.3); Estimated Creatinine Clearance 96.4 mL/min (>60); Glucose 94 mg/dL (74-106); Osmolality,Calculated 278 (275-295); Potassium 3.5 mMol/L (3.4-5.1); Sodium 140 mMol/L (136-145); eGFR > 60 See Note
[2024-11-04 08:00] VITALS: BP 131/79; PULSE 70; RESP 16; TEMP 36.6; O2SAT 96
[2024-11-04] MEDS: cefTRIAXone/D5w 1gm IV premix 50 ML IV ×2 (09:58→19:59)
[2024-11-04] MEDS: DOXYCYCLINE 100 MG TABLET PO ×2 (09:58→19:59)
[2024-11-04 12:00] VITALS: BP 137/77; PULSE 69; RESP 16; TEMP 36.6; O2SAT 99
[2024-11-04 13:25] LABS: Collection Type, Urine Clean Catch
[2024-11-04 13:40] VITALS: BMI 29.5
[2024-11-04 13:45] LABS: Bilirubin,Urine Negative (Negative); Blood,Urine 2+ (Negative); Clarity,Urine Clear (Clear/Hazy); Color,Urine Lt-Yellow (Lt Yel-Yel); Glucose, Urine Negative (Negative); Ketones,Urine Negative (Negative); Leukocyte Esterase,Urine Negative (Negative); Nitrite,Urine Negative (Negative); Protein,Urine Negative (Neg - Trace); RBC,Urine 15 /hpf (0-3); Specific Gravity,Urine 1.013 (1.001-1.035); Squamous Epithelial Cell,Urine 1 /hpf (0-5); Urobilinogen,Urine Negative mg/dL (0.0-1.0); WBC,Urine 1 /hpf (0-5)
--- NOTE | 2024-11-04 15:47 | ESPR_ITS ---
Documentation for date of: 11/04/24 Subjective Subjective Interval history: Patient was seen and examined bedside. Denies any other complaints. Still pending Dr. Hussein's recommendations. Still patient is not able to produce sputum and QuantiFERON test is still pending Exam Vital Signs Temp Pulse Resp BP Pulse Ox O2 Del Method 97.8 F 69 16 137/77 H 99 Room Air 11/04/24 12:00 11/04/24 12:00 11/04/24 12:00 11/04/24 12:00 11/04/24 12:00 11/04/24 12:00 Narrative Exam General: Awake and in no acute distress. HEENT: Normocephalic, atraumatic, mucous membranes moist. Heart: Regular rate and rhythm, no murmurs. Lungs: Clear to auscultation with no wheezing. Fine inspiratory crackles are heard on the right base of the lung. Abdomen: Soft, nondistended, nontender, positive bowel sounds. ?No guarding or rebound tenderness. Neurologic: Alert and oriented x3, no gross neurological deficit, and patient able to move all 4 extremities. Extremities: No edema. Skin: No rash or ecchymoses. Objective Labs 11/05/24 05:30 11/05/24 05:30 Labs: Laboratory Results - last 24 hr 11/04/24 11/04/24 04:15 12:13 WBC 6.7 RBC 3.85 L Hgb 11.4 L Hct 34.0 L MCV 88 MCH 29.6 MCHC 33.5 RDW Std Deviation 41.9 Plt Count 300 D Neut % (Auto) 53 Lymph % (Auto) 35 [place] % (Auto) 7 Eos % (Auto) 5 Baso % (Auto) 1 Neut # (Auto) 3.5 Lymph # (Auto) 2.4 [place] # (Auto) 0.4 Eos # (Auto) 0.3 Baso # (Auto) 0.0 Immature Gran # (Auto) 0.01 H Absolute Nucleated RBC 0.00 Immature Gran % 0 Nucleated RBC % 0 Sodium 140 Potassium 3.5 Chloride 105 Carbon Dioxide 25.2 Anion Gap 10 BUN 11 Creatinine 0.7 Estim Creat Clear Calc 96.4 eGFR > 60 BUN/Creatinine Ratio 16 Glucose 94 Calculated Osmolality 278 Calcium 9.0 Ur Collection Type Clean Catch Urine Color Lt-Yellow Urine Clarity Clear Urine pH 6.0 Ur Specific [place] 1.013 Urine Protein Negative Urine Glucose (UA) Negative Urine Ketones Negative Urine Blood 2+ A Urine Nitrite Negative Urine Bilirubin Negative Urine Urobilinogen (Auto) Negative Ur Leukocyte Esterase Negative Urine RBC 15 H Urine WBC 1 Ur Squamous Epith Cells 1 Urine Bacteria None Quality Measures Quality Measures none Assessment & Plan Assessment Current Active Medications: Generic Name Dose Route Start Last Admin Trade Name Freq PRN Reason Stop Dose Admin Acetaminophen 650 mg 11/04/24 11:41 Acetaminophen 325 Mg Tablet PO 12/01/24 13:28 Q6H PRN Fever >100 Doxycycline Hyclate 100 mg 11/01/24 21:00 11/04/24 09:58 Doxycycline 100 Mg Tablet PO 11/08/24 20:59 100 mg BID GUILLE Administration Ceftriaxone Sodium/Dextrose 50 mls @ 100 mls/hr 11/01/24 13:33 11/04/24 09:58 Rocephin/D5w 1gm Iv Premix IV 11/08/24 13:32 100 mls/hr Q12HR GUILLE Administration Magnesium Hydroxide 30 ml 11/01/24 13:29 Milk Of Magnesia Susp 30 Ml Udc PO 12/01/24 13:28 QDAY PRN CONSTIPATION Protocol Ondansetron HCl 4 mg 11/01/24 13:29 Ondansetron Inj 2 Mg/Ml Inj 2 Ml IV 12/01/24 13:28 Q6H PRN NAUSEA OR VOMITING Protocol Sodium Chloride 5 ml 11/01/24 20:40 Sodium Chloride Rt 10% 15 Ml Nebu INH 12/01/24 22:59 Q8HRRT PRN SPUTUM INDUCTION Plan A 49-year-old female with past medical history of hypertension on lisinopril presented to the hospital with chief complaints of pain on the back of right side of chest since 1 day and diagnosed to have pneumonia # Pneumonia # Cavitary lesion in the right lung Ddx : cocci versus sarcoidosis versus malignancy versus low suspicion of TB -Patient came to the hospital with the complaints of pain on the back of the right chest -Denies fever, shortness of breath, cough, weight loss, night sweats -Denies any travel history. 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 -In the ED noted to have a temperature of 100.8 ?F -CBC and CMP is within normal limits. -CTA showed right lower lobe consolidation with cavitary lesion. -tuberculin test is is negative -Cocci IgM and IgG is ordered - came back negative Plan -Sputum for AFB, QuantiFERON, ordered - sputum for AFB is still pending as patient is not able to produce despite induction. -Sputum for culture and Gram stain is ordered -is still pending as patient is not able to produce despite induction. -Started on ceftriaxone and doxycycline [11/01- -Dr Hussein was consulted and will appreciate recommendations. # History of hypertension -Blood pressure at the time of admission is 138/81 mmHg -Patient stated that she is using lisinopril 20 Mg at home Plan -Will resume the medications based on her blood pressures #H/O lump in the breast, benign 20 yrs ago, asymptomatic as of now Hospital Maintenance: Dispo: MedSurg DVT ppx: SCD GI ppx: Not required Diet: Low-sodium IV lines: Peripheral Code status: Full code Patient plan of care was discussed with the attending physician, Dr. Shaggy Hall, PGY1 Attending Provider Attestation/Addendum I reviewed labs, imaging, EKG, home medications and prior available records. Face to face evaluation was performed by me. I have personally examined the patient and discussed assessment and plan with the IM team. I reviewed the resident note and agree with the plan with exceptions as below. 49-year-old female with history of hypertension who presented with a chief complaint of subjective fevers, sweating, and cough. She was found to have possible right lower lobe pneumonia and cavitary lesion of lung. Right lower lobe pneumonia: Started the patient on ceftriaxone/ doxycycline. Cavitary lesion of lung: Sent TB workup and cocci IgM. Consulted ID to determine whether we need to do AFB x 3. Ordered QuantiFERON which is pending. Pending ID recommendations.
[2024-11-04 16:00] VITALS: BP 140/88; PULSE 76; RESP 17; TEMP 36.2; O2SAT 97
[2024-11-04 20:00] VITALS: BP 143/84; PULSE 79; RESP 17; TEMP 36.3; O2SAT 96
[2024-11-05] VITALS (7 sets, daily range): BP systolic 122–152; BP diastolic 70–84; PULSE 69–83; RESP 17–18; TEMP 36.4–36.9; O2SAT 94–98
[2024-11-05 05:44] LABS: Basophils % (Auto) 1 % (0-2.5); Eosinophils # (Auto) 0.3 Thou/mm3 (0.0-0.5); Eosinophils % (Auto) 5 % (0-10); Hematocrit 34.6 % (36.0-46.0); Hemoglobin 11.6 g/dL (12.0-16.0); Immature Granulocytes % (Auto) 0 % (0-0); Immature Granulocytes Auto 0.02 Thou/mm3 (0.00-0.00); Lymphocytes # (Auto) 2.4 Thou/mm3 (1.0-4.8); Lymphocytes % (Auto) 33 % (10-50); Mean Corpuscular HGB Conc 33.5 g/dl (31.0-37.0); Mean Corpuscular Hemoglobin 29.7 pg (25.0-35.0); Mean Corpuscular Volume 89 fL (80-100); Monocytes # (Auto) 0.4 Thou/mm3 (0.0-0.8); Monocytes % (Auto) 6 % (0-12); Neutrophils # (Auto) 3.9 Thou/mm3 (1.8-7.7); Neutrophils % (Auto) 55 % (37-80); Nucleated Red Blood Cell % 0 /100 WBC (0); Platelet Count 328 Thou/mm3 (140-440); RDW Standard Deviation 41.5 fL (36.4-46.3); White Blood Count 7.1 Thou/mm3 (3.6-11.0)
[2024-11-05 06:08] LABS: Anion Gap 9 (7-16); BUN/Creatinine Ratio 15 Ratio (12-20); Blood Urea Nitrogen 12 mg/dL (9-23); Calcium 9.2 mg/dL (8.3-10.6); Carbon Dioxide 24.1 mMol/L (20.0-31.0); Chloride 105 mMol/L (98-107); Creatinine (Component) 0.8 mg/dL (0.6-1.3); Estimated Creatinine Clearance 84.3 mL/min (>60); Glucose 93 mg/dL (74-106); Osmolality,Calculated 275 (275-295); Potassium 3.5 mMol/L (3.4-5.1); Sodium 138 mMol/L (136-145); eGFR > 60 See Note
--- NOTE | 2024-11-05 10:30 | XR_ITS ---
Examination: CT chest with intravenous contrast 2-D sagittal and coronal reconstructions Exam date and time: November 05, 2024 1339 hrs. Indications: Chest pain shortness of breath beginning 3 days ago CTDI:vol (mGy) 11.8 DLP: (mGycm) 351 Technique: Multiple axial sections of the thorax have been obtained. Sections have been obtained, 3 mm slice thickness. Mediastinal and lung density settings have been obtained. Intravenous contrast administered, 60 cc Isovue-370. 2-D sagittal, coronal images obtained. Low dose protocols were performed. One or more of the following dose reduction techniques were used; automated exposure control, adjustment of the mA and/or KV according to patient size, use of iterative reconstruction technique. Findings: No thoracic aortic aneurysmal dilatation Pulmonary artery segments are not enlarged Pulmonary artery opacification is poor, no gross pulmonary artery emboli Mild right hilar lymphadenopathy Pneumonia right base No pulmonary edema Liver cyst Contracted gallbladder Spleen is not enlarged No pancreatic or adrenal mass Impression: Significant right base pneumonia
[2024-11-05] MEDS: Lisinopril 2.5 MG TABLET 5 MG PO (12:03)
[2024-11-05] MEDS: DOXYCYCLINE 100 MG TABLET PO (12:04)
--- NOTE | 2024-11-05 12:21 | ESPR_ITS ---
Documentation for date of: 11/05/24 Subjective Subjective Interval history: Patient was seen and examined bedside. She is at baseline, denies any cough or B symptoms. Patient is unable to produce sputum, hence AFB samples have not been consulted. ID consulted, pending Dr. Hussein's recommendations. QuantiFERON results still pending. Will wait for Dr Hussein's recommendations regarding subacute action, or if pulmonary intervention may be needed to get bronchial washing Exam Vital Signs Temp Pulse Resp BP Pulse Ox O2 Del Method 97.7 F 75 17 123/74 96 Room Air 11/05/24 12:00 11/05/24 12:03 11/05/24 12:00 11/05/24 12:03 11/05/24 12:00 11/05/24 12:00 Narrative Exam Constitutional Alert, oriented x3 and comfortable HEENT Vision grossly intact. Patent nares. Trachea midline. Respiratory Chest normal on inspection and clear to auscultation bilaterally. Cardiovascular S1 and S2 audible, RRR. No murmurs or carotid bruit. No gross JVD. Abdominal Soft and non tender to palpation in all quadrants. BS + Genitourinary No bladder tenderness, no flank pain. Normal to palpation. Musculoskeletal Extremities tone within normal limits. No LE edema. Neurological CN II - XII grossly intact. Extremity motor and sensation grossly intact. Skin Warm, dry and intact. No apparent lesions. Psychiatric Patient has a good affect, is cooperative. Objective Labs 11/05/24 05:30 11/05/24 05:30 Labs: Laboratory Results - last 24 hr 11/04/24 11/05/24 12:13 05:30 WBC 7.1 RBC 3.90 L Hgb 11.6 L Hct 34.6 L MCV 89 MCH 29.7 MCHC 33.5 RDW Std Deviation 41.5 Plt Count 328 Neut % (Auto) 55 Lymph % (Auto) 33 [place] % (Auto) 6 Eos % (Auto) 5 Baso % (Auto) 1 Neut # (Auto) 3.9 Lymph # (Auto) 2.4 [place] # (Auto) 0.4 Eos # (Auto) 0.3 Baso # (Auto) 0.0 Immature Gran # (Auto) 0.02 H Absolute Nucleated RBC 0.00 Immature Gran % 0 Nucleated RBC % 0 Sodium 138 Potassium 3.5 Chloride 105 Carbon Dioxide 24.1 Anion Gap 9 BUN 12 Creatinine 0.8 Estim Creat Clear Calc 84.3 eGFR > 60 BUN/Creatinine Ratio 15 Glucose 93 Calculated Osmolality 275 Calcium 9.2 Ur Collection Type Clean Catch Urine Color Lt-Yellow Urine Clarity Clear Urine pH 6.0 Ur Specific [place] 1.013 Urine Protein Negative Urine Glucose (UA) Negative Urine Ketones Negative Urine Blood 2+ A Urine Nitrite Negative Urine Bilirubin Negative Urine Urobilinogen (Auto) Negative Ur Leukocyte Esterase Negative Urine RBC 15 H Urine WBC 1 Ur Squamous Epith Cells 1 Urine Bacteria None Quality Measures Quality Measures none Assessment & Plan Assessment Current Active Medications: Generic Name Dose Route Start Last Admin Trade Name Freq PRN Reason Stop Dose Admin Acetaminophen 650 mg 11/04/24 11:41 Acetaminophen 325 Mg Tablet PO 12/01/24 13:28 Q6H PRN Fever >100 Doxycycline Hyclate 100 mg 11/01/24 21:00 11/05/24 12:04 Doxycycline 100 Mg Tablet PO 11/08/24 20:59 100 mg BID GUILLE Administration Lisinopril 5 mg 11/05/24 09:00 11/05/24 12:03 Lisinopril 2.5 Mg Tablet PO 12/05/24 08:59 5 mg QDAY GUILLE Administration Magnesium Hydroxide 30 ml 11/01/24 13:29 Milk Of Magnesia Susp 30 Ml Udc PO 12/01/24 13:28 QDAY PRN CONSTIPATION Protocol Ondansetron HCl 4 mg 11/01/24 13:29 Ondansetron Inj 2 Mg/Ml Inj 2 Ml IV 12/01/24 13:28 Q6H PRN NAUSEA OR VOMITING Protocol Sodium Chloride 5 ml 11/01/24 20:40 Sodium Chloride Rt 10% 15 Ml Nebu INH 12/01/24 22:59 Q8HRRT PRN SPUTUM INDUCTION Plan A 49-year-old female with past medical history of hypertension on lisinopril presented to the hospital with chief complaints of pain on the back of right side of chest since 1 day and diagnosed to have pneumonia 1. Lower lobe cavitary lesion , TB rule out 2. History night sweats, no weight loss 3. H/O lump in the breast 4. Possible right lower lobe pneumonia Ddx : cocci versus sarcoidosis versus malignancy versus low suspicion of TB -Patient came to the hospital with the complaints of pain on the back of the right chest -Denies fever, shortness of breath, cough, weight loss, night sweats -Denies any travel history. 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 -History of breast lump, noted to be benign 20 yrs ago, asymptomatic as of now -In the ED noted to have a temperature of 100.8 ?F -CBC and CMP is within normal limits. -CTA showed right lower lobe consolidation with cavitary lesion. -PPD tuberculin test : negative -Cocci IgM and IgG : negative Plan -AFB : pending as patient is not able to produce despite induction. -QuantiFERON results : pending -Unable to obtain sputum for culture for the same reason -Will de-escalate from ceftriaxone+doxycycline [11/01-11/05] -> amoxicillin 500 mg 3 times daily [11/05 - -Consulted Dr Hussein ID to determine whether we need to do AFB x 3. -Unable to obtain sputum samples, will consider pulmonology consult to get bronchial washings 5. Primary hypertension -Blood pressure at the time of admission is 138/81 mmHg -Patient stated that she is using lisinopril 20 Mg at home Plan -Started home lisinopril, at reduced dose of 5 mg daily -BP trending 120s/70s Hospital Maintenance: Dispo: MedSurg, pending ID recommendations DVT ppx: SCDs GI ppx: Not required Diet: Low-sodium diet IV lines: Peripheral Code status: Full code Plan of care discussed with attending Dr Coon , Fausto Robison MD, PGY 2 Attending Provider Attestation/Addendum I reviewed labs, imaging, EKG, home medications and prior available records. Face to face evaluation was performed by me. I have personally examined the patient and discussed assessment and plan with the IM team. I reviewed the resident note and agree with the plan with exceptions as below. 49-year-old female with history of hypertension who presented with a chief complaint of subjective fevers, sweating, and cough. She was found to have possible right lower lobe pneumonia and cavitary lesion of lung. Right lower lobe pneumonia: Started the patient on ceftriaxone/ doxycycline. Cavitary lesion of lung: Sent TB workup and cocci IgM. Consulted ID to determine whether we need to do AFB x 3. Ordered QuantiFERON which is pending. TB skin test is negative. Ordered repeat CT chest with contrast to check for interval changes. Patient is low risk TB and his clinical picture is most likely consistent with lobular pneumonia. Pending ID recommendations.
[2024-11-05] MEDS: AMOXICILLIN 250 MG CAPSULE 500 MG PO (21:33)
[2024-11-06] VITALS (7 sets, daily range): BP systolic 112–146; BP diastolic 63–84; PULSE 67–82; RESP 15–18; TEMP 36.2–36.9; O2SAT 95–98
[2024-11-06] MEDS: AMOXICILLIN 250 MG CAPSULE 500 MG PO (05:32)
[2024-11-06] MEDS: Lisinopril 2.5 MG TABLET 5 MG PO (09:58)
[2024-11-06] MEDS: AMOXICILLIN 250 MG CAPSULE 1000 MG PO (14:21)
[2024-11-06 14:50] LABS: Cocci Serology, IgM Positive (Negative)
[2024-11-06 14:51] LABS: Cocid Sro, CF/ID (UCD) NO CHG* See Sep Rpt
--- NOTE | 2024-11-06 15:57 | ESPR_ITS ---
Documentation for date of: 11/06/24 Subjective Subjective Interval history: Patient was seen and examined bedside. No complaints, per patient. Still waiting for Dr. Hussein's recommendations. Repeat sample sent this morning tested positive for cocci IgM and started on fluconazole. Exam Vital Signs Temp Pulse Resp BP Pulse Ox O2 Del Method 98.4 F 82 16 146/84 H 98 Room Air 11/06/24 15:35 11/06/24 15:35 11/06/24 15:35 11/06/24 15:35 11/06/24 15:35 11/06/24 15:35 Narrative Exam General: Awake. Lying comfortably on the bed. HEENT: Normocephalic, atraumatic, mucous membranes moist. Heart: Regular rate and rhythm, no murmurs. Lungs: Clear to auscultation with no wheezing or crackles. Abdomen: Soft, nondistended, nontender, positive bowel sounds. ?No guarding or rebound tenderness. Neurologic: Alert and oriented x3, no gross neurological deficit, and patient able to move all 4 extremities. Extremities: No edema. Skin: No rash or ecchymoses. Objective Labs 11/07/24 05:18 11/05/24 05:30 Labs: Laboratory Results - last 24 hr 11/06/24 11:19 Coccidioides IgM Ab Positive A Quality Measures Quality Measures none Assessment & Plan Assessment Current Active Medications: Generic Name Dose Route Start Last Admin Trade Name Freq PRN Reason Stop Dose Admin Acetaminophen 650 mg 11/04/24 11:41 Acetaminophen 325 Mg Tablet PO 12/01/24 13:28 Q6H PRN Fever >100 Fluconazole 400 mg 11/06/24 15:15 Fluconazole 100 Mg Tablet PO 11/13/24 15:14 QDAY GUILLE Lisinopril 5 mg 11/05/24 09:00 11/06/24 09:58 Lisinopril 2.5 Mg Tablet PO 12/05/24 08:59 5 mg QDAY GUILLE Administration Magnesium Hydroxide 30 ml 11/01/24 13:29 Milk Of Magnesia Susp 30 Ml Udc PO 12/01/24 13:28 QDAY PRN CONSTIPATION Protocol Ondansetron HCl 4 mg 11/01/24 13:29 Ondansetron Inj 2 Mg/Ml Inj 2 Ml IV 12/01/24 13:28 Q6H PRN NAUSEA OR VOMITING Protocol Sodium Chloride 5 ml 11/01/24 20:40 Sodium Chloride Rt 10% 15 Ml Nebu INH 12/01/24 22:59 Q8HRRT PRN SPUTUM INDUCTION Plan A 49-year-old female with past medical history of hypertension on lisinopril presented to the hospital with chief complaints of pain on the back of right side of chest since 1 day and diagnosed to have pneumonia # Pneumonia # Cavitary lesion in the right lung # IgM cocci positive Ddx : cocci versus sarcoidosis versus low suspicion of TB -Patient came to the hospital with the complaints of pain on the back of the right chest -Denies fever, shortness of breath, cough, weight loss, night sweats -Denies any travel history. 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 -In the ED noted to have a temperature of 100.8 ?F -CBC and CMP is within normal limits. -CTA showed right lower lobe consolidation with cavitary lesion. -tuberculin test is is negative -Cocci IgM and IgG is ordered - came back negative at the time of admission -Repeat cocci sent on 11/06/2024 tested positive for IgM Plan -Sputum for AFB, QuantiFERON, ordered - sputum for AFB is still pending as patient is not able to produce despite induction. -Sputum for culture and Gram stain is ordered -is still pending as patient is not able to produce despite induction. -Stopped antibiotics and started on fluconazole 400 Mg p.o. daily in view of cocci positive IgM -Dr Hussein was consulted and will appreciate recommendations. # History of hypertension -Blood pressure at the time of admission is 138/81 mmHg -Patient stated that she is using lisinopril 20 Mg at home Plan -Will resume the medications based on her blood pressures #H/O lump in the breast, benign 20 yrs ago, asymptomatic as of now Hospital Maintenance: Dispo: MedSurg DVT ppx: SCD GI ppx: Not required Diet: Low-sodium IV lines: Peripheral Code status: Full code Patient plan of care was discussed with the attending physician, Dr. Coon and senior resident Dr.Verma Benji Hall, PGY1 Ms. Trujillo is a pleasant Korean-speaking 49-year-old female who was admitted for recurrent right chest wall pain. She was found to have a right lower lobe pneumonia, questionable for a cavitary lesion. Patient did endorse subjective fevers and cold sweats intermittently over the last few weeks. QuantiFERON pending. Pending sample collection for AFB to rule out TB at this time. Infectious disease specialist Dr. Hussein is consulted for further recommendations, he will see patient tomorrow. Cocci IgM positive on 11/06, patient started on fluconazole 400mg qD. Patient examined and case discussed with the team including attending physician. Note reviewed, I agree with the care plan as documented. - Fausto Robison MD, PGY 2 Attending Provider Attestation/Addendum I reviewed labs, imaging, EKG, home medications and prior available records. Face to face evaluation was performed by me. I have personally examined the patient and discussed assessment and plan with the IM team. I reviewed the resident note and agree with the plan with exceptions as below. 49-year-old female with history of hypertension who presented with a chief complaint of subjective fevers, sweating, and cough. She was found to have possible right lower lobe pneumonia and cavitary lesion of lung. Right lower lobe pneumonia: Started the patient on ceftriaxone/ doxycycline. Cavitary lesion of lung: Sent TB workup and cocci IgM. Repeat cocci IgM is positive. Started fluconazole. Repeat CT scan of the chest showed right lower lobe pneumonia. Consulted ID to determine whether we need to do AFB x 3. Ordered QuantiFERON which is pending. Pending ID recommendations.
[2024-11-06] MEDS: FLUCONAZOLE 100 MG TABLET 400 MG PO (17:52)
[2024-11-07] VITALS (7 sets, daily range): BP systolic 121–142; BP diastolic 69–86; PULSE 71–80; RESP 17–18; TEMP 36.3–36.6; O2SAT 96–98
[2024-11-07 06:24] LABS: Basophils # (Auto) 0.1 Thou/mm3 (0.0-0.2); Basophils % (Auto) 1 % (0-2.5); Eosinophils # (Auto) 0.3 Thou/mm3 (0.0-0.5); Eosinophils % (Auto) 5 % (0-10); Hematocrit 36.9 % (36.0-46.0); Hemoglobin 12.3 g/dL (12.0-16.0); Immature Granulocytes % (Auto) 0 % (0-0); Immature Granulocytes Auto 0.02 Thou/mm3 (0.00-0.00); Lymphocytes # (Auto) 2.6 Thou/mm3 (1.0-4.8); Lymphocytes % (Auto) 37 % (10-50); Mean Corpuscular HGB Conc 33.3 g/dl (31.0-37.0); Mean Corpuscular Volume 90 fL (80-100); Monocytes # (Auto) 0.5 Thou/mm3 (0.0-0.8); Monocytes % (Auto) 7 % (0-12); Neutrophils # (Auto) 3.6 Thou/mm3 (1.8-7.7); Neutrophils % (Auto) 50 % (37-80); Nucleated Red Blood Cell % 0 /100 WBC (0); Platelet Count 342 Thou/mm3 (140-440); RDW Standard Deviation 43.6 fL (36.4-46.3); White Blood Count 7.1 Thou/mm3 (3.6-11.0)
[2024-11-07] MEDS: FLUCONAZOLE 100 MG TABLET 400 MG PO (08:41)
[2024-11-07] MEDS: Lisinopril 2.5 MG TABLET 5 MG PO (08:41)
--- NOTE | 2024-11-07 17:07 | ESPR_ITS ---
<Statement entered by Haritha Canseco MD - 11/08/24 07:56> Patient was seen and examined by me personally. I agree with most of the assessment and plan as discussed with the finance intern physician, and my attending, Dr. Coon. Cocci positive, on fluconazole. Less likely TB at this time. PPD neg, QFT pending. Will discuss with ID if AFB sputum can be cancelled and patient discharged home. Haritha Canseco MD, PGY-3 Documentation for date of: 11/07/24 Subjective Subjective Interval history: Patient was seen and examined bedside. Denies any symptoms. Explained about her current condition and explained that we are waiting for Dr. Hussein's recommendations. QuantiFERON is still pending. Exam Vital Signs Temp Pulse Resp BP Pulse Ox O2 Del Method 97.5 F 74 18 130/78 96 Room Air 11/07/24 16:00 11/07/24 16:00 11/07/24 16:00 11/07/24 16:00 11/07/24 16:00 11/07/24 16:00 Narrative Exam General: Awake. Lying comfortably on the bed. Moderately built and nourished HEENT: Normocephalic, atraumatic, mucous membranes moist. Heart: Regular rate and rhythm, no murmurs. Lungs: Clear to auscultation with no wheezing. Fine inspiratory crackles heard on right posterior base of the lung. Abdomen: Soft, nondistended, nontender, positive bowel sounds. ?No guarding or rebound tenderness. Neurologic: Alert and oriented x3, no gross neurological deficit, and patient able to move all 4 extremities. Extremities: No edema. Skin: No rash or ecchymoses. Objective Labs 11/07/24 05:18 11/05/24 05:30 Labs: Laboratory Results - last 24 hr 11/07/24 05:18 WBC 7.1 RBC 4.10 Hgb 12.3 Hct 36.9 MCV 90 MCH 30.0 MCHC 33.3 RDW Std Deviation 43.6 Plt Count 342 Neut % (Auto) 50 Lymph % (Auto) 37 [place] % (Auto) 7 Eos % (Auto) 5 Baso % (Auto) 1 Neut # (Auto) 3.6 Lymph # (Auto) 2.6 [place] # (Auto) 0.5 Eos # (Auto) 0.3 Baso # (Auto) 0.1 Immature Gran # (Auto) 0.02 H Absolute Nucleated RBC 0.00 Immature Gran % 0 Nucleated RBC % 0 Quality Measures Quality Measures none Assessment & Plan Assessment Current Active Medications: Generic Name Dose Route Start Last Admin Trade Name Freq PRN Reason Stop Dose Admin Acetaminophen 650 mg 11/04/24 11:41 Acetaminophen 325 Mg Tablet PO 12/01/24 13:28 Q6H PRN Fever >100 Fluconazole 400 mg 11/06/24 15:15 11/07/24 08:41 Fluconazole 100 Mg Tablet PO 11/13/24 15:14 400 mg QDAY GUILLE Administration Lisinopril 5 mg 11/05/24 09:00 11/07/24 08:41 Lisinopril 2.5 Mg Tablet PO 12/05/24 08:59 5 mg QDAY GUILLE Administration Magnesium Hydroxide 30 ml 11/01/24 13:29 Milk Of Magnesia Susp 30 Ml Udc PO 12/01/24 13:28 QDAY PRN CONSTIPATION Protocol Ondansetron HCl 4 mg 11/01/24 13:29 Ondansetron Inj 2 Mg/Ml Inj 2 Ml IV 12/01/24 13:28 Q6H PRN NAUSEA OR VOMITING Protocol Sodium Chloride 5 ml 11/01/24 20:40 Sodium Chloride Rt 10% 15 Ml Nebu INH 12/01/24 22:59 Q8HRRT PRN SPUTUM INDUCTION Plan A 49-year-old female with past medical history of hypertension on lisinopril presented to the hospital with chief complaints of pain on the back of right side of chest since 1 day and diagnosed to have pneumonia # Pneumonia # Cavitary lesion in the right lung # IgM cocci positive Ddx : cocci versus sarcoidosis versus low suspicion of TB -Patient came to the hospital with the complaints of pain on the back of the right chest -Denies fever, shortness of breath, cough, weight loss, night sweats -Denies any travel history. 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 -In the ED noted to have a temperature of 100.8 ?F -CBC and CMP is within normal limits. -CTA showed right lower lobe consolidation with cavitary lesion. -tuberculin test is is negative -Cocci IgM and IgG is ordered - came back negative at the time of admission -Repeat cocci sent on 11/06/2024 tested positive for IgM Plan -Sputum for AFB, QuantiFERON, ordered - sputum for AFB is still pending as patient is not able to produce despite induction. -Sputum for culture and Gram stain is ordered -is still pending as patient is not able to produce despite induction. -Stopped antibiotics and started on fluconazole 400 Mg p.o. daily in view of cocci positive IgM -Dr Hussein was consulted and will appreciate recommendations. # History of hypertension -Blood pressure at the time of admission is 138/81 mmHg -Patient stated that she is using lisinopril 20 Mg at home Plan -Will resume the medications based on her blood pressures #H/O lump in the breast, benign 20 yrs ago, asymptomatic as of now Hospital Maintenance: Dispo: MedSurg DVT ppx: SCD GI ppx: Not required Diet: Low-sodium IV lines: Peripheral Code status: Full code Patient plan of care was discussed with the attending physician, Dr. Coon and senior resident Dr. Ajith Hall, PGY1 Attending Provider Attestation/Addendum I reviewed labs, imaging, EKG, home medications and prior available records. Face to face evaluation was performed by me. I have personally examined the patient and discussed assessment and plan with the IM team. I reviewed the resident note and agree with the plan with exceptions as below. 49-year-old female with history of hypertension who presented with a chief complaint of subjective fevers, sweating, and cough. She was found to have possible right lower lobe pneumonia and cavitary lesion of lung. Right lower lobe pneumonia: Started the patient on ceftriaxone/ doxycycline. Cavitary lesion of lung: Sent TB workup and cocci IgM. Repeat cocci IgM is positive. Started fluconazole. Repeat CT scan of the chest showed right lower lobe pneumonia. Consulted ID to determine whether we need to do AFB x 3. Ordered QuantiFERON which is pending. Pending ID recommendations. Discussed with psychosocial rehabilitation counselor.
[2024-11-08] VITALS: BP 129/86; PULSE 88; RESP 17; TEMP 36.7; O2SAT 93
[2024-11-08 04:00] VITALS: BP 128/77; PULSE 71; RESP 17; TEMP 37; O2SAT 97
[2024-11-08 06:45] LABS: Hepatitis C Antibody Non Reactive (Non React)
[2024-11-08 07:37] LABS: HIV (1&2) Antibody Rapid Non-Reactive
[2024-11-08 07:42] VITALS: BP 130/88; PULSE 74; RESP 18; TEMP 36.4; O2SAT 95
[2024-11-08 09:01] VITALS: BP 130/88; PULSE 74
[2024-11-08] MEDS: Lisinopril 2.5 MG TABLET 5 MG PO (09:01)
[2024-11-08] MEDS: FLUCONAZOLE 100 MG TABLET 400 MG PO (09:01)
[2024-11-08 11:40] LABS: Alanine Aminotransferase 28 U/L (10-49); Albumin, Serum 4.2 gm/dL (3.5-5.0); Albumin/Globulin Ratio 1.6 (1.2-2.2); Alkaline Phosphatase 101 U/L (46-116); Anion Gap 7 (7-16); Aspartate Amino Transferase 17 U/L (0-34); BUN/Creatinine Ratio 16 Ratio (12-20); Bilirubin,Total 0.2 mg/dL (0.3-1.2); Blood Urea Nitrogen 11 mg/dL (9-23); Carbon Dioxide 24.5 mMol/L (20.0-31.0); Chloride 106 mMol/L (98-107); Creatinine (Component) 0.7 mg/dL (0.6-1.3); Estimated Creatinine Clearance 96.4 mL/min (>60); Globulin 2.6 gm/dL (2.3-3.5); Glucose 80 mg/dL (74-106); Osmolality,Calculated 272 (275-295); Potassium 4.8 mMol/L (3.4-5.1); Sodium 137 mMol/L (136-145); Total Protein 6.8 gm/dL (5.7-8.2); eGFR > 60 See Note
[2024-11-08 11:47] VITALS: BP 130/88; PULSE 74; RESP 18; TEMP 36.4; O2SAT 95
--- NOTE | 2024-11-08 13:35 | PD.IDPROG ---
Subjective Subjective Interval history: afb's and qtf ordered but no results. pt speaks only kinyarwanda and does not have a cough. Exam Vital Signs Temp Pulse Resp BP Pulse Ox O2 Del Method 97.5 F 74 18 130/88 H 95 Room Air 11/08/24 11:47 11/08/24 11:47 11/08/24 11:47 11/08/24 11:47 11/08/24 11:47 11/08/24 11:47 Narrative Exam looks great. am not sure why qtf not done Objective - Internal Medicine Labs 11/07/24 05:18 11/08/24 04:13 Labs: Laboratory Results - last 24 hr 11/08/24 04:13 Sodium 137 Potassium 4.8 D Chloride 106 Carbon Dioxide 24.5 Anion Gap 7 BUN 11 Creatinine 0.7 Estim Creat Clear Calc 96.4 eGFR > 60 BUN/Creatinine Ratio 16 Glucose 80 Calculated Osmolality 272 L Calcium 9.0 Corrected Calcium 9.0 Total Bilirubin 0.2 L AST 17 ALT 28 Alkaline Phosphatase 101 Total Protein 6.8 Albumin 4.2 Globulin 2.6 Albumin/Globulin Ratio 1.6 Hepatitis C Antibody Non Reactive HIV 1&2 Antibody Rapid Non-Reactive Assessment & Plan A&P Narrative pulmonary lesion . pos cocci test. no cough. no wt loss. pneumonia, upper lobe, will get some labs today, but with no signs or sx of tb, ok to release to outpt and f/u with outpt primary. if cocci neg at send out lab, be sure she has had 7d of general abx and do a cxr after 4-6 weeks . if cocci pos at [facility], then ok to delay cxr, I can see in 3 mo or so if referred with serology from sent out lab and chest imaging report. Time Spent With Patient Time: Total time spent is greater than 50% in coordination of care (as documented) at patient's floor/unit and/or counseling patient:
--- NOTE | 2024-11-08 13:52 | PD.ADDPROG ---
Addendum Progress Note Addendum Date of report being addended: 11/08/24 Narrative: qtf ordered 10/30 and presumably not done as not reported in any way and it has been a week. am advised that lab will not draw the qtf till tomorrow. that is their decision.
--- NOTE | 2024-11-08 14:03 | PD.ADDPROG ---
Addendum Progress Note Addendum Date of report being addended: 11/08/24 Narrative: ok to finish standard pneumonia rx with po levaquin for remainder of 7d following initial rx. patients from regular pneumonia
[2024-11-08 16:00] VITALS: BP 124/78; PULSE 72; RESP 18; TEMP 36.4; O2SAT 95
--- NOTE | 2024-11-08 16:06 | ESCONSULT_ITS ---
RE: JIMMIE HOGAN : 1975 DATE OF CONSULTATION: 11/08/2024 REFERRING PHYSICIAN: Dr. Coon. REASON FOR CONSULTATION: Pneumonia, right lower lobe. HISTORY OF PRESENT ILLNESS: The patient is here for sudden onset back pain. It has been here for more than a week now. She has hypertension and she is 2 para 2. She had a right shoulder surgery in 1994 , but nothing else is noted. She has had 2 vaginal deliveries. ALLERGIES: NONE NOTED. IMMUNIZATIONS: Last tetanus is not known. She has not taken flu shot, COVID vaccine or pneumococcal vaccines. FAMILY HISTORY: Unremarkable. SOCIAL HISTORY: She lives with her and both of her children. 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 exam is benign Of note, her valley fever test was negative on 11/01/2024 and positive on 11/06/2024, so the team would like me to stop her AFB workup. She does not have a cough. There is no weight loss and she is not ill appearing. I am not certain why theafb were ordered in the first place, . Hepatitis C is negative as well. QuantiFERON was ordered along with AFBs, but remains pending. I have reordered it, so it can be sent out today along with several other tests to try to find alternative problems if they are present. The patient may go home and you may defer the AFB testing for now, but please note that if her QuantiFERON is positive, we may need to repeat that testing as an outpatient. The QuantiFERON is not a useful test in acute disease because it could be falsely positive, but for screening, it is useful like a PPD. Unfortunately, it stays positive for the rest of her life, so she ever had a positive test, she is going to remain positive. We usually do not repeat the QuantiFERON as a test of cure, so if she does have positive QuantiFERON, negative sputum for AFBs, we may be able to see her in clinic. If her cultures are negative, you should probably repeat her x-ray in 4-6 weeks as a precaution especially if her valley fever test is negative. If her valley fever test is positive at [facility], then you may want to wait a few months and repeat the valley fever test in a couple of months along with chest x-ray and CMP. If she would like me to see her, I am happy to see her, but we need a positive test from [facility] as well as chest imaging reports.fluconazole is relatively non toxic so if you leave her on it, that is likely ok DT: 13:47:26 TT: 15:09:00 Ref: [id number] - TID: [id number] MTDD
--- NOTE | 2024-11-08 16:34 | ESDS_ITS ---
Planned Discharge Date 11/08/24 DS: Providers Provider Date of admission: 11/01/24 13:30 Primary care physician: Elvin Wan PA-C Admitting Provider: Uli Coon MD Attending Provider on Admission: Uli Coon MD Consults: 11/02/24 16:17 Consult to Infectious Diseases Stat Comment: for cavitatory lesion in the lung Consulting Provider: Scotty Hussein Attending Provider on DC: Benji Hall MD Discharging Provider: Benji Hall MD DS: Diagnosis Problem List Completed Was Problem List Reviewed/Reconciled?: Yes Hospital Course Hospital Course Hospital course: A 49-year-old female with past medical history of hypertension on lisinopril presented to the hospital with chief complaints of pain on the back of right side of chest since 1 day. Patient was apparently normal 1 day ago, developed sudden onset of pain in the right back and dignosed to have cocci pneumonia. vitals are stable except for Temp of 100.8F. Labs significant for WBC 9.6, Hb 13, platelets 352, sodium 137, potassium 3.3, BUN 13, creatinine 0.9, lactate 0.9, negative Pro-Joon and liver function test is within normal limits. Tested negative for urine toxicology. CTA chest showed dense consolidation in the right lower lobe with suspected cavitated lesion with hilar lymphadenopathy. Tested negative for cooci on 11/01/2024 and repeat cocci tested positive on 11/06/2024. TB quantiferon was sent but the report is pending. Dr. Hussein was consulted -'The patient may go home and you may defer the AFB testing for now, but please note that if her QuantiFERON is positive, we may need to repeat that testing as an outpatient'. Patient is discharged to home with the following medications and recommendations -Follow-up with PCP within 1 week of discharge. If you do not have appointment, please follow-up with the [facility] with Dr. Hall. Call [phone] to make an appointment. -Follow up with Dr. Hussein within 1 week of discharge -Take Fluconazole 400mg P.O. qday for 12 weeks -continue other home medications as usual -Return to ED if symptoms persist or return #cocci pneumonia #Hypertension Patient plan of care was discussed with the attending physician, Dr. Coon and senior resident Dr. Ajith Hall, PGY1 Time Spent with Patient Time attestation: Total time spent providing and/or coordinating discharge services: Time spent: Greater than 30 minutes Exam Vital Signs Temp Pulse Resp BP Pulse Ox O2 Del Method 97.5 F 74 18 130/88 H 95 Room Air 11/08/24 11:47 11/08/24 11:47 11/08/24 11:47 11/08/24 11:47 11/08/24 11:47 11/08/24 11:47 Narrative Exam General: Awake. HEENT: Normocephalic, atraumatic, mucous membranes moist. Heart: Regular rate and rhythm, no murmurs. Lungs: Clear to auscultation with no wheezing or crackles. Abdomen: Soft, nondistended, nontender, positive bowel sounds. ?No guarding or rebound tenderness. Neurologic: Alert and oriented x3, no gross neurological deficit, and patient able to move all 4 extremities. Extremities: No edema. Skin: No rash or ecchymoses. Discharge Plan Plan Patient Disposition: HOME (Self Care) Patient condition on transfer: Stable Care Plan Goals: -Follow-up with PCP within 1 week of discharge. If you do not have appointment, please follow-up with the [facility] with Dr. Hall. Call [phone] to make an appointment. -Follow up with Dr. Hussein within 1 week of discharge -Take Fluconazole 400mg P.O. qday for 12 weeks -continue other home medications as usual -Return to ED if symptoms persist or return Cristina ronald radha con el PCP dentro de la semana posterior al mercedes. Si no tiene radha, favor cristina ronald radha con el centro [facility] con la Dra. Hall. Llame al [phone] para programar ronald radha. -cristina ronald radha con el Dr. Hussein dentro de 1 semana despu?s del [place] -[place] fluconazol 400 mg por v?a oral. cada d?a matilda 12 semanas -Continuar con otros medicamentos caseros anny de [place]. -Regresar al servicio de urgencias si los s?ntomas persisten o regresan. Prescriptions/Referrals Prescriptions/Med Rec: New fluconazole 200 mg tablet 400 mg PO QDAY 30 Days Qty: 60 0RF Continued lisinopril-hydrochlorothiazide 10-12.5 mg tablet 1 tab PO QDAY Referrals: Elvin Wan PA-C [Primary Care Provider] - Patient/Caregiver Discharge Instructions Discharge Activity: resume usual activities Education Materials: Understanding Coccidioidomycosis Print Language: Georgian Activity Restrictions/Additional Instructions: -Follow-up with primary care provider within 1 week of discharge. If you do not have appointment, please follow-up with the [facility] with Dr. Hall. Call [phone] to make an appointment. -Follow up with Dr. Hussein within 1 week of discharge -Take Fluconazole 400mg P.O. qday for 12 weeks -continue other home medications as usual -Return to ED if symptoms persist or return Cristina ronald radha con el PCP dentro de la semana posterior al mercedes. Si no tiene radha, favor cristina ronald radha con el centro cl[facility] con la Dra. Hall. Llame al [phone] para programar ronald radha. -cristina ronald radha con el Dr. Hussein dentro de 1 semana despu?s del [place] -[place] fluconazol 400 mg por v?a oral. cada d?a matilda 12 semanas -Continuar con otros medicamentos caseros anny de [place]. -Regresar al servicio de urgencias si los s?ntomas persisten o regresan. Stand Alone Forms: [employer] Info., Patient Portal Info Letter Discharge Order Discharge Orders: Discharge (Routine); Ordered 11/08/24 Ordered By: Benji Hall Quality Discharge Quality Measures VTE prophylaxis MD Attestestation MD Attestation I reviewed labs, imaging, EKG, home medications and prior available records. Face to face evaluation was performed by me. I have personally examined the patient and discussed assessment and plan with the IM team. I reviewed the resident note and agree with the plan with exceptions as below. 49-year-old female with history of hypertension who presented with a chief complaint of subjective fevers, sweating, and cough. She was found to have possible right lower lobe pneumonia and cavitary lesion of lung. Right lower lobe pneumonia: Finished 7-day course of antibiotics. Likely in the setting of cocci pneumonia. Will discharge on p.o. fluconazole 400 mg daily. Follow-up confirmatory test at [facility]. Cavitary lesion of lung: Skin TB test is negative. 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 Unlikely TB. She has no symptoms suggestive of TB or risk factors. Okay to discharge from ID standpoint. Time spent is 40 minutes. More than 50% of the time was spent on patient education and coordination of care.
[2024-11-13 06:49] LABS: ANA Screen, IFA NEGATIVE (NEGATIVE)
== END 2024-11-08 17:36 | disposition home or self-care (01) | DRG 137 ==
LOC: SERX 11-01 08:37 → SERHOLD 11-01 13:44 → S3NX 11-01 17:12
PROVIDERS: Internal Medicine Infectious Disease; Physician Assistant; Student in an Organized Health Care Education/Training Program; Admitting Provider Student in an Organized Health Care Education/Training Program; Emergency Provider Emergency Medicine; PCP Physician Assistant; Visit Provider Student in an Organized Health Care Education/Training Program
DX: B38.0 Acute pulmonary coccidioidomycosis (principal); I10 Essential (primary) hypertension; M54.6 Pain in thoracic spine
CPT/HCPCS: 36415; 71046; 71260; 71275; 80048; 80053; 80307; 81001; 81025; 83605; 84145; 84484; 85025; 85379; 86038; 86331; 86480; 86580; 86635; 86703; 86803; 87015; 87086; 87116; 87205; 87206; 87400; 87811; 89220; 93005; 96365; 96375; 99285; A4649; J0696; J1885; Q9967; 94640; A9270